=== PATIENT | male | born 1985 | race Two or more races ===

== ENCOUNTER 2017-08-11 22:17 | Emergency (ER) | payer OTHER ==
[~2017-08-11] VITALS: Ht 165.1 cm; Wt 77.1 kg
[2017-08-11 22:35] VITALS: BP 130/88
[2017-08-11] MEDS ORDERED: IBUPROFEN600 MG ORAL (22:53)
[2017-08-11] MEDS ORDERED: Tetanus/Diptheria/Pertussis Vaccine 0.5ml Syr IM ONE (23:00)
[2017-08-11 23:12] VITALS: BP 130/88
--- NOTE | 2017-08-11 23:33 | Emergency Room Report ---
History of Present Illness General Chief Complaint: Laceration Source: Patient Present Illness HPI 32YOM with abrasion to left anterior lower leg Cut accidentally on metal part of plastic bin Bleeding controlled Occured hours ago Unknown last tetanus No other injury No OTC meds Able to ambulate Allergies: Coded Allergies: No Known Allergies (Unverified , 08/11/17) Patient History Past Medical History: none Past Surgical History: none Pertinent Family History: none Social History: Denies: smoking, alcohol use, drug use Immunizations: UTD Reviewed Nursing Documentation: PMH: Agreed, PSxH: Agreed Nursing Documentation-PMH Past Medical History: No Stated History Review of Systems All Other Systems: negative except mentioned in HPI Physical Exam Vital Signs Date Time Temp Pulse Resp B/P (MAP) Pulse Ox O2 Delivery O2 Flow Rate FiO2 08/11/17 22:24 97.9 78 14 130/88 96 Room Air Sp02 EP Interpretation: reviewed, normal General Appearance: normal inspection, well appearing, no apparent distress, alert, GCS 15, non-toxic Head: normocephalic, atraumatic Eyes: bilateral eye PERRL, bilateral eye EOMI ENT: normal ENT inspection, hearing grossly normal, normal pharynx, no angioedema, normal voice, TMs + canals normal, uvula midline, moist mucus membranes Neck: normal inspection, full range of motion, supple, thyroid normal, no meningismus, no bony tend Respiratory: normal inspection, lungs clear, normal breath sounds, no rhonchi, no respiratory distress, no retraction, no accessory muscle use, no wheezing, speaking full sentences Cardiovascular #1: regular rate, rhythm, no edema, no JVD, normal capillary refill Gastrointestinal: normal inspection, normal bowel sounds, non tender, soft, no mass, no peritonitis, non-distended, no guarding, no hernia, no pulsatile mass Genitourinary: no CVA tenderness Musculoskeletal: normal inspection, back normal, normal range of motion, no calf tenderness, pelvis stable, Francesco's Sign negative, other - Left lecm abrasion to left middle anterior leg. No laceration. No active bleeding. Associated swelling. Neurologic: normal inspection, alert, oriented x3, responsive, mold breaker III-XII nml as tested, motor strength/tone normal, cerebellar normal, normal gait, speech normal Psychiatric: normal inspection, judgement/insight normal, mood/affect normal, no suicidal/homicidal ideation, no delusions Skin: normal inspection, normal color, no rash Lymphatic: normal inspection, no adenopathy Medical Decision Making Diagnostic Impression: Primary Impression: Abrasion ER Course Minor abrasion left leg VSS. Afebrile Non tender tibia, unlikely fx Tetanus update Wound cleaned, dressed Rx motrin close PMD followup Last Vital Signs Date Time Temp Pulse Resp B/P (MAP) Pulse Ox O2 Delivery O2 Flow Rate FiO2 08/11/17 23:12 97.9 71 14 130/88 96 Room Air Status: improved Disposition: HOME, SELF-CARE Condition: Improved Scripts Ibuprofen* (MOTRIN*) 600 Mg Tablet 600 MG ORAL THREE TIMES A DAY for leg pain for 7 Days, #30 TAB 0 Refills Prov: RASHID JOHNS M.D. 08/11/17 Referrals: NOT CHOSEN [facility]/,REFERRING (PCP) Departure Forms: Return to Work Return to Work in (Days): 1 Return to Work Date: Aug 12, 2017 Patient Instructions: Nonsutured Laceration Care RASHID JOHNS M.D. Aug 11, 2017 23:33
== END 2017-08-11 23:12 | disposition home or self-care (01) ==
LOC: EMR 22:51
DX: S80.812A Abrasion, left lower leg, initial encounter (principal); W26.8XXA Contact with other sharp object(s), not elsewhere classified, initial encounter; Y92.511 Restaurant or cafe as the place of occurrence of the external cause; Y99.0 Civilian activity done for income or pay; Z23 Encounter for immunization
CPT/HCPCS: 90471; 90715; 99283